=== PATIENT | female | born 1935 | race Caucasian/White ===

== ENCOUNTER 2018-09-20 21:49 | Emergency (ER) | payer MEDICARE, BC ==
[2018-09-20] MEDS ORDERED: SODIUM CHLORIDE 0.9% 500 ML IV ONE (22:24)
[2018-09-20] MEDS ORDERED: ACETAMINOPHEN 1,000 MG/100 ML BTL IVPB ONE (22:25)
--- NOTE | 2018-09-20 22:27 | Emergency Department Record ---
History of Present Illness - General Chief Complaint: Abdominal Pain Stated Complaint: LOWER LT ABDOMINAL PAIN Time Seen by Provider: 09/20/18 22:01 Source: Patient Mode of Arrival: Ambulatory Limitations: No limitations - History of Present Illness Initial Comments: The patient is here due to sharp stabbing LLQ AP which started about 2 and 1/2 hours ago. The pain is intermittent and severe at times. There has been no nausea, vomiting, diarrhea, dysuria, hematuria, or fever associated with the pain. She has a hx of multiple abdominal surgeries but has never had a kidney stone. MD Complaint: Abdominal pain Onset/Timin -: Hour(s) Location: L Flank, LLQ Radiation: L flank Severity scale (1-10): 9 Quality: Sharp Consistency: Constant Improves With: Nothing Worsens With: Movement Associated Symptoms: Denies other symptoms - Related Data Patient : No Home Medications Medication Instructions Recorded Confirmed Last Taken Loperamide HCl [Imodium A-D] 2 mg PO BID 09/20/18 09/20/18 09/20/18 Multivitamin [Multiple Vitamins] 1 tab PO DAILY 09/20/18 09/20/18 09/20/18 Wheat Dextrin [Benefiber] 152 gm PO BID 09/20/18 09/20/18 09/20/18 Allergies Allergy/AdvReac Type Severity Reaction Status Date / Time diazepam Allergy Unknown DIARRHEA Unverified 09/20/18 22:12 hydrocodone bitartrate Allergy Unknown sensitvity Unverified 09/20/18 22:12 [From VICODIN] naproxen sodium Allergy Unknown unknown Unverified 09/20/18 22:12 Sulfa (Sulfonamide Allergy Unknown unknown Unverified 09/20/18 22:12 Antibiotics) [SULFA (SULFONAMIDE ANTIBIOTICS)] Travel Screening - Travel/Exposure Within Last 30 Days Have you traveled within the last 30 days?: No - Travel/Exposure Within Last Year Have you traveled outside the [place] in the last year?: No - Additonal Travel Details Have you been exposed to anyone with a communicable illness?: No - Travel Symptoms Symptom Screening: None Review of Systems Constitutional: Denies: Chills, Fever Eyes: Denies: Eye discharge ENT: Denies: Congestion Respiratory: Denies: Cough, Dyspnea Cardiovascular: Denies: Arrhythmia, Chest pain Gastrointestinal: Reports: Abdominal pain. Denies: Nausea Genitourinary: Denies: Dysuria Musculoskeletal: Denies: Arthralgia, Back pain Skin: Denies: Bruising Past Medical History - SOCIAL HISTORY Smoking Status: Never smoker Alcohol Use: None Drug Use: None - RESPIRATORY Hx Respiratory Disorders: No - CARDIOVASCULAR Hx Cardio Disorders: No - NEURO Hx Neuro Disorders: No - GI Hx GI Disorders: No - Hx Genitourinary Disorders: No - ENDOCRINE Hx Endocrine Disorders: No - MUSCULOSKELETAL Hx Musculoskeletal Disorders: Yes Hx Arthritis: Yes - PSYCH Hx Psych Problems: No - HEMATOLOGY/ONCOLOGY Hx Hematology/Oncology Disorders: Yes Hx Cancer: Yes (uterus) Family Medical History Any Significant Family History?: No Physical Exam - General General Appearance: Alert, Oriented x3, Cooperative, No acute distress (The patient appears very comfortably presently and nontoxic.) - Head Head exam: Atraumatic, Normocephalic - Eye Eye exam: Normal appearance, PERRL - ENT Throat exam: Normal inspection. negative: Tonsillar erythema, Tonsillar exudate - Neck Neck exam: Normal inspection, Full ROM. negative: Tenderness - Respiratory Respiratory exam: Normal lung sounds bilaterally. negative: Respiratory distress - Cardiovascular Cardiovascular Exam: Regular rate, Normal rhythm, Normal heart sounds. negative: Diastolic murmur, Systolic murmur - GI/Abdominal GI/Abdominal exam: Soft, Normal bowel sounds, Tenderness (There is mild LLQ tenderness to palpation.). negative: Hypoactive bowel sounds, Rebound, Rigid - Extremities Extremities exam: Normal inspection, Full ROM, Normal capillary refill. nega tive: Tenderness - Neurological Neurological exam: Alert, Normal gait. negative: Abnormal gait, Motor sensory deficit - Psychiatric Psychiatric exam: negative: Anxious Course Vital Signs 09/20/18 21:58 Pulse Rate [ 75 Pulse Ox Probe] Respiratory 20 Rate Blood Pressure 185/100 [Left Arm] Pulse Ox 98 - Reevaluation(s) Reevaluation #1: The patient is doing a lot better at this time. She states the pain is gone and she is presently reading a book in the room. On exam her abdomen is very soft and nontender. I did discuss the normal lab, urine and CT results and the need for F/U for the incidental findings on CT. 09/20/18 23:32 Medical Decision Making - Data Complexity MDM Data: Labs Ordered and/or Reviewed, X-Ray Ordered and/or Reviewed - Lab Data Result diagrams: 09/20/18 22:28 09/20/18 22:28 - Radiology Data Radiology results: Report reviewed (CT: Neg for diverticulitis or any acute abnormality. Non-obstructing para-umbilical hernia, slowly enlarging L liver hemangioma. ) Disposition Disposition: Discharge Clinical Impression: Abdominal pain Qualifiers: Abdominal location: unspecified location Qualified Code(s): R10.9 - Unspecified abdominal pain Disposition: Home, Self-Care Condition: (2) Stable Instructions: Abdominal Pain (ED) Additional Instructions: Please take Tylenol for pain and please see your family doctor for recheck this week. Also bring the lab results and the official dictated CT report to the appointment. Return to the ER for any worsening symptoms. Forms: Patient Portal Access Time of Disposition: 23:33 Quality - Quality Measures Quality Measures: N/A - Blood Pressure Screening View Details: Yes Does Patient Have Any of the Following: No Blood Pressure Classification: Pre-Hypertensive BP Reading Systolic Measurement: 150 Diastolic Measurement: 83 Screening for High Blood Pressure: < Pre-Hypertensive BP, F/U Documented > [[id number]] Pre-Hypertensive Follow-up Interventions: Referral to alternative/primary care provider.
[2018-09-20 22:34] LABS: ABSOLUTE NEUTROPHIL COUNT 3.08; BASO % 0.6 % (0-6); EOS % 3.1 % (0-6); GRAN % 59.2 % (47-80); HEMATOCRIT 38.8 % (35.0-47.0); HEMOGLOBIN 12.9 gm/dl (11.6-16.0); LYMPH % 26.7 % (16-45); MEAN CELL VOLUME 94.6 fl (81-97); MEAN CORPUSCULAR HEMOGLOBIN 31.5 pg (27-33); MEAN CORPUSCULAR HGB CONC 33.2 g/dl (32-36); MEAN PLATELET VOLUME 10.5 fl (7.4-10.4); MONO % 10.4 % (0-9); PLATELET COUNT 209 K/uL (130-400); RED CELL DISTRIBUTION WIDTH 14.1 % (11.5-14.5); URINE APPEARANCE CLEAR; URINE BILIRUBIN NEGATIVE (NEGATIVE); URINE BLOOD SMALL (NEGATIVE); URINE GLUCOSE (UA) NEGATIVE (NEGATIVE); URINE KETONE NEGATIVE (NEGATIVE); URINE LEUKOCYTE ESTERASE TRACE (NEGATIVE); URINE NITRITE NEGATIVE (NEGATIVE); URINE PROTEIN NEGATIVE (NEGATIVE); URINE UROBILINOGEN 0.2 E.U./dL (0.20 - 1.00); WHITE BLOOD COUNT W/O DIFF 5.2 K/uL (4.2-12.2)
[2018-09-20 22:39] LABS: URINE COLOR COLORLESS
[2018-09-20 22:41] LABS: URINE EPITHELIAL CELLS 0 - 2 (FEW); URINE RBC 0 - 2 (NONE SEEN); URINE WBC 0 - 2 (0-2/hpf)
[2018-09-20 22:44] LABS: BLOOD UREA NITROGEN 21 mg/dL (8-23); EST GLOMERULAR FILTRATION RATE 56 mL/min
[2018-09-20 22:45] LABS: LIPASE 24 U/L (13-60); TOTAL PROTEIN 7.2 g/dL (6.6-8.7)
[2018-09-20 22:47] LABS: GLUCOSE,RANDOM 105 mg/dL (74-109)
[2018-09-20 22:49] LABS: ALT/SGPT 13 U/L (<33); AST/SGOT 21 U/L (10.0-35.0); BILIRUBIN,DIRECT < 0.2 mg/dL (0-0.3)
[2018-09-20 22:50] LABS: ALBUMIN 4.6 g/dL (4.0-5.0); ALKALINE PHOSPHATASE 74 U/L (35-104)
--- NOTE | 2018-09-22 05:47 | CT SCAN REPORT ---
DATE: 09/20/2018 at 2242 hours. EXAM: CT OF THE ABDOMEN AND PELVIS WITHOUT CONTRAST. TEMP HISTORY: LEFT LOWER QUADRANT PAIN. TECHNIQUE: Noncontrast images are obtained from the dome of the diaphragm to the symphysis pubis. FINDINGS: The lung bases and pleural spaces are clear. As noted on the CT scan dated 06/19/2006, there is a hemangioma of the left lobe of the liver, likely segment 2. Since the prior examination, the hemangioma has increased in sized and now measures approximately 3.7 cm. No other hepatic lesions are seen. The gallbladder is unremarkable. The pancreas is intact. The spleen is normal. The adrenal glands and kidneys are free of focal masses. No hydronephrosis or obstructing calculi are identified. The bladder is unremarkable. The stomach and small bowel are within normal limits. There is evidence of sigmoid resection with reanastomosis. The anastomosis is widely patent. There are mild diverticular changes in the residual left colon. The bladder and pelvic structures are free of masses. IMPRESSION: NO ACUTE INTRA-ABDOMINAL PROCESS. SLOWLY INCREASING IN SIZE IS A LEFT HEPATIC HEMANGIOMA. THERE IS A SMALL PERIUMBILICAL HERNIA CONTAINING FAT AND A PARTIAL NONDILATED LOOP OF TRANSVERSE COLON. Job Number: [id number] [facility]
== END 2018-09-20 23:44 | disposition home or self-care (01) ==
LOC: ER 21:49
DX: R10.32 Left lower quadrant pain (principal); K42.9 Umbilical hernia without obstruction or gangrene
CPT/HCPCS: 74176; 80048; 80076; 81001; 83690; 85025; 96365; 99284